=== PATIENT | female | born 1960 | race Caucasian/White ===

== ENCOUNTER 2021-10-25 03:29 | Outpatient (CLI) | payer OTHER, SELFPAY ==
[2021-10-25 10:41] LABS: Abs Immature Grans 0.01 10^3/uL (0.0-0.06); Absolute Basophil Count 0.06 10^3/uL (0.0-0.2); Absolute Eosinophil Count 0.05 10^3/uL (0.0-0.7); Absolute Monocyte Count 0.28 10^3/uL (0.1-0.8); Basophils % 1.1; Eosinophils % 0.9; HCT 40.1 % (36.0-46.0); HGB 13.6 g/dL (11.2-15.7); Immature Grans % 0.2; Lymphocytes % 40.4; MCH 30.8 pg (27.0-33.0); MCHC 33.9 % (32.0-36.0); MCV 91 fL (80-95); MPV 10.5 fL (8.0-11.0); Monocytes % 4.9; Neutrophils % 52.5; Platelet Count 174 10^3/uL (130-400); RBC 4.41 10^6/uL (3.93-5.22); RDW 12.4 % (11.7-14.6); RDW-SD 41.1 fL
== END 2021-10-25 03:30 | disposition home or self-care (01) ==
PROVIDERS: Visit Provider Internal Medicine Hematology
DX: C95.10 Chronic leukemia of unspecified cell type not having achieved remission
CPT/HCPCS: 36415; 85025

== ENCOUNTER 2024-11-19 12:18 | Outpatient (REF) | payer OTHER, SELFPAY | END 2024-11-19 12:19 | disposition home or self-care (01) | LOC: LBN 12:18 | PROVIDERS: Visit Provider Nurse Practitioner Family | DX: K13.70 Unspecified lesions of oral mucosa (principal) | CPT/HCPCS: 87077; 87070; 87186; 87205 ==